=== PATIENT | female | born 1990 | race Caucasian/White ===

== ENCOUNTER → 2018-10-17 | Outpatient (CLI) | payer OTHER ==
--- NOTE | 2018-10-17 11:58 | REP ---
CT Head without contrast HISTORY: Headache COMPARISON: None The patient is status post right frontal craniectomy. There is no intraparenchymal hemorrhage, acute infarct, mass or midline shift. The ventricular system is normal in appearance. There is no extra cerebral collection. There is no fracture. The visualized sinuses are clear. IMPRESSION: There is no intracranial lesion. Electronically Signed by Sandro Menendez MD 10/17/2018 11:50 A
== END ==
LOC: M RAD 11:36
PROVIDERS: ATTEND Clinical Nurse Specialist Psychiatric/Mental Health, Adult
DX: R51 Headache (principal); Z86.011 Personal history of benign neoplasm of the brain; Z98.890 Other specified postprocedural states